=== PATIENT | female | born 1950 | race Caucasian/White ===

== ENCOUNTER 2018-07-28 12:45 | Observation (INO) ==
[2018-07-28 13:19] LABS: Basophils % 0.4 % (0.0-0.8); Eosinophils # 0.1 10*3/uL (0.0-0.87); Eosinophils % 1.6 % (0.00-10.9); Hematocrit 39.3 VOL% (35.7-47.0); Hemoglobin 13.5 GM/DL (12.0-16.0); Immature Granulocytes % 0.5 %; Immature Granulocytes Absolute 0.03 #; Lymphocytes # 1.7 10*3/uL (1.4-4.0); Lymphocytes % 30.5 % (21.3-54.2); Mean Corpuscular HGB Conc 34.4 GM/DL (32-36); Mean Corpuscular Hemoglobin 32 PG (27-34); Mean Platelet Volume 9.8 FL (9.6-12.0); Monocytes # 0.6 10*3/uL (0.11-0.8); Monocytes % 10.4 % (1.7-12.7); Neutrophils # 3.2 10*3/uL (1.4-7.4); Neutrophils % 56.6 % (38.7-73.9); Platelet Count 232 T/CUMM (130-400); Red Blood Count 4.27 MC/CUMM (3.8-5.5); Red Cell Distribution Width 12.8 % (9.3-17.3); White Blood Count 5.7 T/CUMM (4-12)
[2018-07-28 13:33] LABS: INR 0.8; Partial Thromboplastin Time 25.4 SECS (0-40)
[2018-07-28 13:35] LABS: Alanine Aminotransferase 31 U/L (13-56); Albumin 3.7 G/DL (3.4-5.0); Alkaline Phosphatase 95 U/L (45-117); Aspartate Amino Transferase 28 U/L (0-37); Blood Urea Nitrogen 2 MG/DL (7-18); Calcium 9.1 MG/DL (8.5-10.1); Glucose 107 MG/DL (74-106); Osmolality,Calculated 261.4 MOS/KG (273-304); Potassium 3.7 MMOL/L (3.5-5.1); Sodium 133 MMOL/L (136-145); Total Protein 7.2 G/DL (6.4-8.3); Troponin I < 0.015 NG/ML (0.00-0.045)
[2018-07-28] MEDS ORDERED: ALUM/MAG/SIMETH/LIDO VISC 1:1 30 ML BOTTLE PO STA (14:22)
[2018-07-28] MEDS ORDERED: ASPIRIN 325 MG TABLET PO STA (14:22)
[2018-07-28] MEDS ORDERED: SODIUM CHLORIDE 0.9% 500 ML IV STA (14:22)
[2018-07-28] MEDS ORDERED: ONDANSETRON 4 MG/2 ML VIAL IV STA (14:22)
[2018-07-28] MEDS ORDERED: NITROGLYCERIN 2% OINT 1 INCH/GM PACK TOP STA (14:22)
[2018-07-28] MEDS ORDERED: PANTOPRAZOLE 40 MG VIAL IV STA (14:22)
[2018-07-28] MEDS ORDERED: ONDANSETRON 4 MG/2 ML VIAL IV PRN (15:51)
[2018-07-28] MEDS ORDERED: MAGNESIUM SULF RIDER 4 GM in PREMIX 1 EACH IV PRN (15:51)
[2018-07-28] MEDS ORDERED: MORPHINE 4 MG/1 ML VIAL IV PRN (15:51)
[2018-07-28] MEDS ORDERED: POTASSIUM CHLORIDE 20 MEQ TABLET PO PRN ×2 (15:51)
[2018-07-28] MEDS ORDERED: MAGNESIUM SULF RIDER 2 GM in PREMIX 1 EACH IV PRN (15:51)
[2018-07-28] MEDS ORDERED: ACETAMINOPHEN 325 MG TABLET PO PRN (15:51)
[2018-07-28] MEDS ORDERED: KETOROLAC 30 MG/1 ML VIAL IV PRN (16:00)
[2018-07-28] MEDS ORDERED: ENOXAPARIN 40 MG/0.4 ML SYRINGE SUBCUT SCH (17:30)
[2018-07-28] MEDS: ATENOLOL 50 MG TABLET PO SCH (20:12)
[2018-07-28] MEDS ORDERED: LATANOPROST 0.005% OPH SOLN 2.5 ML BOTTLE BOTH EYES SCH (21:00)
[2018-07-28] MEDS ORDERED: AZELASTINE NASAL 137 MCG/SPRAY 30 ML BOTTLE BOTH NARES SCH (21:00)
[2018-07-29 04:24] LABS: Basophils % 0.6 % (0.0-0.8); Eosinophils # 0.2 10*3/uL (0.0-0.87); Eosinophils % 4.4 % (0.00-10.9); Hematocrit 32.3 VOL% (35.7-47.0); Immature Granulocytes % 0.3 %; Immature Granulocytes Absolute 0.01 #; Lymphocytes # 1.8 10*3/uL (1.4-4.0); Lymphocytes % 48.8 % (21.3-54.2); Mean Corpuscular HGB Conc 34.1 GM/DL (32-36); Mean Corpuscular Hemoglobin 31 PG (27-34); Mean Corpuscular Volume 92.3 FL (87-102); Mean Platelet Volume 10.3 FL (9.6-12.0); Monocytes # 0.6 10*3/uL (0.11-0.8); Monocytes % 16.8 % (1.7-12.7); Neutrophils # 1.1 10*3/uL (1.4-7.4); Neutrophils % 29.1 % (38.7-73.9); Platelet Count 203 T/CUMM (130-400); Red Cell Distribution Width 12.9 % (9.3-17.3); White Blood Count 3.6 T/CUMM (4-12)
[2018-07-29 04:51] LABS: Calcium 8.1 MG/DL (8.5-10.1); Osmolality,Calculated 267.8 MOS/KG (273-304); Potassium 3.8 MMOL/L (3.5-5.1); Risk Ratio 1.95; Thyroid Stimulating Hormone 3.35 uIU/ml (0.358-3.74)
[2018-07-29 05:11] LABS: Eosinophils 1 % (0-10); Lymphocytes 45 % (20-55); Segmented Neutrophils 46 % (50-85); Total Cells Counted 100
[2018-07-29 05:12] LABS: Platelet Estimate Normal
[2018-07-29] MEDS: LEVOTHYROXINE 75 MCG TABLET PO SCH ×2 (06:12→09:04)
[2018-07-29 08:34] VITALS: BP 148/67
[2018-07-29] MEDS ORDERED: PANTOPRAZOLE 40 MG TABLET PO SCH (09:00)
[2018-07-29] MEDS ORDERED: ESTRADIOL 1 MG TABLET PO SCH (09:00)
[2018-07-29] MEDS: ATENOLOL 50 MG TABLET PO SCH (09:05)
== END 2018-07-29 10:44 | disposition home or self-care (01) ==
LOC: N.EDINP 12:45 → N.ED 12:45 → N.TELES 17:01
PROVIDERS: ADMIT Internal Medicine; ATTEND Internal Medicine